=== PATIENT | female | born 1960 | race African-American/Black ===

== ENCOUNTER 2022-05-22 14:06 | Inpatient (IN) | payer MEDICAID ==
[~2022-05-22] VITALS: Ht 154.9 cm; Wt 65.8 kg
[2022-05-22] MEDS ORDERED: CALCIUM CHLORIDE 1,000 MG in DEXT 5% WATER 100 ML IV ONE (16:15)
[2022-05-22] MEDS ORDERED: INSULIN REGULAR (HUMULIN R) 300UNITS/3ML VIAL IV ONE (16:15)
[2022-05-22] MEDS ORDERED: SODIUM BICARBONATE 8.4% 1 MEQ/ML 50ML SYR IV ONE (16:15)
[2022-05-22] MEDS ORDERED: DEXTROSE 50% WATER 50ML SYRINGE IV ONE (16:15)
[2022-05-22] MEDS ORDERED: SODIUM POLYSTYRENE SULFONATE 15 G/60 ML BOT PO ONE (16:15)
[2022-05-22] MEDS ORDERED: HYDRALAZINE 20MG/ML VIAL IV ONE (16:15)
[2022-05-22] MEDS ORDERED: FUROSEMIDE 100MG/10ML VIAL IV ONE (16:15)
[2022-05-22 16:28] LABS: BASOPHILS % 0.9 % (0.0-2.0); EOSINOPHILS % 1.1 % (0.0-5.0); HEMATOCRIT. 30.2 % (36.0-48.0); HEMOGLOBIN. 9.9 g/dL (12.0-16.0); LYMPHOCYTES % 11.8 % (20.0-50.0); MEAN CORPUSCULAR HEMOGLOBIN 29.2 pg (28.0-32.0); MEAN CORPUSCULAR VOLUME 88.8 fL (81.0-99.0); NEUTROPHILS % 80.2 % (40.0-76.0); PLATELET 337 x1000/uL (130-400); RED CELL DISTRIBUTION WIDTH 16.2 % (11.6-14.6)
[2022-05-22 16:31] LABS: CHLORIDE 102 mEq/L (98-107)
[2022-05-22 16:40] LABS: D-DIMER 4.33 mg/L FEU (<0.50); INR 1.1; PROTHROMBIN TIME 11.9 sec (9.6-11.0)
[2022-05-22 16:53] LABS: ETHANOL BLOOD < 10 mg/dL
[2022-05-22] MEDS: ALBUTEROL (0.083%) 2.5MG/3ML NEB HHN SCH ×3 (16:54→18:52)
[2022-05-22 18:12] LABS: *AMPHETAMINES SCREEN URINE NEGATIVE (NEGATIVE); *BARBITURATES SCREEN URINE NEGATIVE (NEGATIVE); *BENZODIAZEPINES SCREEN URINE NEGATIVE (NEGATIVE); *COCAINE SCREEN URINE PRESUMTIVE POSITIVE (NEGATIVE); CANNABINOID URINE SCREEN NEGATIVE (NEGATIVE); METHADONE URINE SCREEN NEGATIVE (NEGATIVE); OPIATES URINE SCREEN NEGATIVE (NEGATIVE); PHENCYCLIDINE URINE SCREEN NEGATIVE (NEGATIVE)
[2022-05-22] MEDS ORDERED: CLONIDINE 0.2MG TABLET PO NR (20:45)
[2022-05-23] VITALS (10 sets, daily range): BP systolic 132–188; BP diastolic 63–101
[2022-05-23] MEDS ORDERED: HYDROCODONE/ACETAMINOPHEN 5/325MG TABLET PO PRN (00:30)
[2022-05-23] MEDS: ALBUTEROL (0.083%) 2.5MG/3ML NEB HHN PRN (05:50)
[2022-05-23] MEDS: SEVELAMER CARBONATE 800 MG TABLET PO SCH ×3 (08:15→17:26)
[2022-05-23] MEDS: ASPIRIN 81MG TABLET PO SCH (08:15)
[2022-05-23] MEDS: NIFEDIPINE XL 60MG TAB PO SCH (08:17)
[2022-05-23] MEDS ORDERED: HYDRALAZINE HCL 100MG TABLET PO NR (09:00)
[2022-05-23] MEDS ORDERED: ALBU4TAB6 MT (09:39)
[2022-05-23] MEDS ORDERED: ASPI-986 MT (09:39)
[2022-05-23] MEDS ORDERED: CLON0.5T MT (09:39)
[2022-05-23] MEDS ORDERED: LABE100T9 PO (10:58)
[2022-05-23] MEDS ORDERED: INS7030 SUBCUT (10:58)
[2022-05-23] MEDS ORDERED: QUET100T PO (10:58)
[2022-05-23 11:21] LABS: BASOPHILS % 0.9 % (0.0-2.0); EOSINOPHILS % 2.6 % (0.0-5.0); HEMATOCRIT. 26.1 % (36.0-48.0); HEMOGLOBIN. 8.9 g/dL (12.0-16.0); LYMPHOCYTES % 13.7 % (20.0-50.0); MEAN CORPUSCULAR HEMOGLOBIN 29.5 pg (28.0-32.0); MEAN CORPUSCULAR VOLUME 87.1 fL (81.0-99.0); MEAN PLATELET VOLUME 7.6 fl (7.4-10.4); MONOCYTES % 9.3 % (2.0-8.0); NEUTROPHILS % 73.5 % (40.0-76.0); PLATELET 311 x1000/uL (130-400); RED CELL DISTRIBUTION WIDTH 15.9 % (11.6-14.6)
[2022-05-23 15:34] LABS: HEPATITIS B SURFACE ANTIGEN NEGATIVE
[2022-05-23] MEDS ORDERED: HYDRALAZINE HCL 100MG TABLET PO SCH (21:00)
[2022-05-23] MEDS: HYDRALAZINE HCL 100MG TABLET PO SCH (21:16)
[2022-05-24] VITALS (7 sets, daily range): BP systolic 143–208; BP diastolic 63–105
[2022-05-24] MEDS: HYDRALAZINE HCL 100MG TABLET PO SCH ×3 (05:12→20:14)
[2022-05-24] MEDS: SEVELAMER CARBONATE 800 MG TABLET PO SCH ×3 (08:13→17:53)
[2022-05-24] MEDS: ASPIRIN 81MG TABLET PO SCH (08:14)
[2022-05-24] MEDS: NIFEDIPINE XL 60MG TAB PO SCH ×3 (08:14→20:14)
[2022-05-25] VITALS (16 sets, daily range): BP systolic 130–212; BP diastolic 75–100
[2022-05-25] MEDS: ALBUTEROL (0.083%) 2.5MG/3ML NEB HHN PRN (03:16)
[2022-05-25] MEDS: HYDRALAZINE HCL 100MG TABLET PO SCH ×3 (05:25→20:08)
[2022-05-25] MEDS: SEVELAMER CARBONATE 800 MG TABLET PO SCH ×3 (09:00→18:18)
[2022-05-25] MEDS: ASPIRIN 81MG TABLET PO SCH (09:02)
[2022-05-25] MEDS: NIFEDIPINE XL 60MG TAB PO SCH ×2 (09:02→20:08)
[2022-05-26] VITALS: BP 175/80
[2022-05-26 04:00] VITALS: BP 199/105
[2022-05-26] MEDS: HYDRALAZINE HCL 100MG TABLET PO SCH ×3 (05:29→21:37)
[2022-05-26 08:00] VITALS: BP 157/76
[2022-05-26] MEDS: ASPIRIN 81MG TABLET PO SCH (09:00)
[2022-05-26] MEDS: SEVELAMER CARBONATE 800 MG TABLET PO SCH ×3 (09:22→18:14)
[2022-05-26] MEDS: NIFEDIPINE XL 60MG TAB PO SCH ×2 (09:22→21:36)
[2022-05-26 12:00] VITALS: BP 187/97
[2022-05-26] MEDS: LOSARTAN POTASSIUM 50 MG TABLET PO SCH (13:38)
[2022-05-26] MEDS ORDERED: NALOXONE HCL 0.4MG/ML VIAL IV PRN (14:15)
[2022-05-26] MEDS: TRAMADOL 50MG TABLET PO PRN (14:15)
[2022-05-26 16:00] VITALS: BP 204/101
[2022-05-26 16:42] LABS: BASOPHILS % 1.1 % (0.0-2.0); EOSINOPHILS % 5.1 % (0.0-5.0); HEMOGLOBIN. 8.9 g/dL (12.0-16.0); MEAN CORPUSCULAR VOLUME 88.1 fL (81.0-99.0); MEAN PLATELET VOLUME 7.5 fl (7.4-10.4); MONOCYTES % 10.4 % (2.0-8.0); NEUTROPHILS % 67.4 % (40.0-76.0); PLATELET 369 x1000/uL (130-400); RED BLOOD CELL COUNT 3.07 mill/uL (4.2-5.4); RED CELL DISTRIBUTION WIDTH 15.6 % (11.6-14.6)
[2022-05-26] MEDS: CLONIDINE 0.1MG TABLET PO SCH (19:31)
[2022-05-26 20:00] VITALS: BP 162/77
[2022-05-26] MEDS: QUETIAPINE FUMARATE 50MG TABLET PO SCH (21:36)
[2022-05-26] MEDS ORDERED: CLONIDINE 0.1MG TABLET PO SCH (22:00)
[2022-05-27] VITALS: BP 149/78
[2022-05-27 04:00] VITALS: BP 170/85
[2022-05-27] MEDS: HYDRALAZINE HCL 100MG TABLET PO SCH ×3 (04:40→20:21)
[2022-05-27] MEDS: CLONIDINE 0.1MG TABLET PO SCH ×2 (05:22→15:20)
[2022-05-27 07:52] VITALS: BP 183/81
[2022-05-27 08:47] LABS: HEPATITIS B SURFACE ANTIGEN NEGATIVE
[2022-05-27] MEDS: ASPIRIN 81MG TABLET PO SCH (09:00)
[2022-05-27] MEDS: SEVELAMER CARBONATE 800 MG TABLET PO SCH ×3 (11:02→18:25)
[2022-05-27] MEDS: QUETIAPINE FUMARATE 50MG TABLET PO SCH ×2 (11:03→20:20)
[2022-05-27] MEDS: LOSARTAN POTASSIUM 50 MG TABLET PO SCH (11:04)
[2022-05-27] MEDS: NIFEDIPINE XL 60MG TAB PO SCH ×2 (11:04→20:21)
[2022-05-27 11:41] VITALS: BP 178/85
[2022-05-27 15:59] VITALS: BP 167/73
[2022-05-27 20:00] VITALS: BP 174/78
[2022-05-27] MEDS: CLONIDINE 0.2MG TABLET PO SCH (21:32)
[2022-05-27] MEDS: TRAMADOL 50MG TABLET PO PRN (21:33)
[2022-05-28] VITALS (18 sets, daily range): BP systolic 126–177; BP diastolic 51–88
[2022-05-28] MEDS: HYDRALAZINE HCL 100MG TABLET PO SCH ×3 (06:12→21:12)
[2022-05-28] MEDS: QUETIAPINE FUMARATE 50MG TABLET PO SCH ×2 (08:51→21:12)
[2022-05-28] MEDS: ASPIRIN 81MG TABLET PO SCH (08:51)
[2022-05-28] MEDS: LOSARTAN POTASSIUM 50 MG TABLET PO SCH (08:51)
[2022-05-28] MEDS: NIFEDIPINE XL 60MG TAB PO SCH ×2 (08:52→21:13)
[2022-05-28] MEDS: CLONIDINE 0.2MG TABLET PO SCH ×2 (08:52→21:13)
[2022-05-28] MEDS: SEVELAMER CARBONATE 800 MG TABLET PO SCH ×3 (08:52→17:58)
[2022-05-29] VITALS: BP 153/65
[2022-05-29 04:00] VITALS: BP 176/76
[2022-05-29] MEDS: HYDRALAZINE HCL 100MG TABLET PO SCH ×3 (05:22→21:46)
[2022-05-29] MEDS: ASPIRIN 81MG TABLET PO SCH (08:33)
[2022-05-29] MEDS: CLONIDINE 0.2MG TABLET PO SCH ×2 (08:33→21:46)
[2022-05-29] MEDS: SEVELAMER CARBONATE 800 MG TABLET PO SCH ×3 (08:33→18:33)
[2022-05-29] MEDS: TRAMADOL 50MG TABLET PO PRN (08:33)
[2022-05-29] MEDS: QUETIAPINE FUMARATE 50MG TABLET PO SCH ×2 (08:34→21:47)
[2022-05-29] MEDS: NIFEDIPINE XL 60MG TAB PO SCH ×2 (08:34→21:46)
[2022-05-29] MEDS: LOSARTAN POTASSIUM 50 MG TABLET PO SCH (08:34)
[2022-05-29 12:00] VITALS: BP 141/62
[2022-05-29 16:00] VITALS: BP 137/51
[2022-05-29 17:12] VITALS: BP 137/51
[2022-05-29 20:00] VITALS: BP 160/74
[2022-05-30] VITALS (13 sets, daily range): BP systolic 102–176; BP diastolic 70–92
[2022-05-30] MEDS: HYDRALAZINE HCL 100MG TABLET PO SCH ×4 (05:04→23:48)
[2022-05-30] MEDS: QUETIAPINE FUMARATE 50MG TABLET PO SCH ×2 (08:33→19:53)
[2022-05-30] MEDS: ASPIRIN 81MG TABLET PO SCH (08:33)
[2022-05-30] MEDS: NIFEDIPINE XL 60MG TAB PO SCH ×2 (08:34→19:53)
[2022-05-30] MEDS: LOSARTAN POTASSIUM 50 MG TABLET PO SCH (08:34)
[2022-05-30] MEDS: SEVELAMER CARBONATE 800 MG TABLET PO SCH ×3 (08:34→18:01)
[2022-05-30] MEDS: CLONIDINE 0.2MG TABLET PO SCH ×2 (08:35→19:52)
[2022-05-30] MEDS: TRAMADOL 50MG TABLET PO PRN (13:35)
[2022-05-30 16:28] LABS: EOSINOPHILS % 5.3 % (0.0-5.0); HEMATOCRIT. 23.3 % (36.0-48.0); HEMOGLOBIN. 7.7 g/dL (12.0-16.0); LYMPHOCYTES % 15.3 % (20.0-50.0); MEAN CORPUSCULAR HEMOGLOBIN 29.3 pg (28.0-32.0); MEAN CORPUSCULAR VOLUME 88.8 fL (81.0-99.0); MEAN PLATELET VOLUME 8.2 fl (7.4-10.4); MONOCYTES % 11.8 % (2.0-8.0); NEUTROPHILS % 66.6 % (40.0-76.0); PLATELET 335 x1000/uL (130-400); RED BLOOD CELL COUNT 2.62 mill/uL (4.2-5.4)
[2022-05-31] VITALS: BP 149/72
[2022-05-31 04:00] VITALS: BP 175/84
[2022-05-31 08:00] VITALS: BP 165/72
[2022-05-31] MEDS: CLONIDINE 0.2MG TABLET PO SCH (09:40)
[2022-05-31] MEDS: QUETIAPINE FUMARATE 50MG TABLET PO SCH ×2 (09:40→21:54)
[2022-05-31] MEDS: ASPIRIN 81MG TABLET PO SCH (09:40)
[2022-05-31] MEDS: SEVELAMER CARBONATE 800 MG TABLET PO SCH ×3 (09:40→17:35)
[2022-05-31] MEDS: NIFEDIPINE XL 60MG TAB PO SCH ×2 (09:41→21:57)
[2022-05-31] MEDS: LOSARTAN POTASSIUM 50 MG TABLET PO SCH (09:41)
[2022-05-31 12:00] VITALS: BP 131/60
[2022-05-31] MEDS: HYDRALAZINE HCL 100MG TABLET PO SCH ×2 (13:25→21:57)
[2022-05-31 20:00] VITALS: BP 160/72
[2022-05-31] MEDS: CLONIDINE 0.3MG TABLET PO SCH (21:00)
[2022-06-01] VITALS (10 sets, daily range): BP systolic 123–197; BP diastolic 67–97
[2022-06-01] MEDS: HYDRALAZINE HCL 100MG TABLET PO SCH ×2 (05:48→14:43)
[2022-06-01] MEDS: QUETIAPINE FUMARATE 50MG TABLET PO SCH (08:21)
[2022-06-01] MEDS: ASPIRIN 81MG TABLET PO SCH (08:21)
[2022-06-01] MEDS: CLONIDINE 0.3MG TABLET PO SCH (08:22)
[2022-06-01] MEDS: SEVELAMER CARBONATE 800 MG TABLET PO SCH ×2 (08:23→14:43)
[2022-06-01] MEDS: NIFEDIPINE XL 60MG TAB PO SCH (08:23)
[2022-06-01] MEDS: LOSARTAN POTASSIUM 50 MG TABLET PO SCH (08:23)
[2022-06-01] MEDS ORDERED: CLONIDINE 0.3MG TABLET PO SCH (14:00)
[2022-06-01] MEDS ORDERED: HYDR100T26 PO (16:54)
[2022-06-01] MEDS ORDERED: SEVE800T8 PO (16:54)
[2022-06-01] MEDS ORDERED: CLON0.3T PO (16:54)
[2022-06-01] MEDS ORDERED: LOSA50TA3 PO (16:54)
[2022-06-01] MEDS ORDERED: NIFE-32 PO (16:54)
== END 2022-06-01 16:30 | disposition home or self-care (01) | DRG 194 ==
LOC: ER 14:06 → MICUSO 17:24 → EDBEDREQ 17:26 → 8WST 05-23 04:12 → 6EST 05-25 23:08
PROVIDERS: ADMIT Internal Medicine; ATTEND Internal Medicine
PROC: 5A1D70Z Performance of Urinary Filtration, Intermittent, Less than 6 Hours Per Day (ICD-10-PCS; principal; 2022-05-23)
PROC: 5A1D70Z Performance of Urinary Filtration, Intermittent, Less than 6 Hours Per Day (ICD-10-PCS; 2022-05-25)
PROC: 5A1D70Z Performance of Urinary Filtration, Intermittent, Less than 6 Hours Per Day (ICD-10-PCS; 2022-05-28)
PROC: 5A1D70Z Performance of Urinary Filtration, Intermittent, Less than 6 Hours Per Day (ICD-10-PCS; 2022-05-30)
PROC: 5A1D70Z Performance of Urinary Filtration, Intermittent, Less than 6 Hours Per Day (ICD-10-PCS; 2022-06-01)
DX: I13.2 Hypertensive heart and chronic kidney disease with heart failure and with stage 5 chronic kidney disease, or end stage renal disease (principal); N18.6 End stage renal disease; E44.0 Moderate protein-calorie malnutrition; E11.22 Type 2 diabetes mellitus with diabetic chronic kidney disease; D63.1 Anemia in chronic kidney disease; E87.5 Hyperkalemia; I50.9 Heart failure, unspecified; F14.10 Cocaine abuse, uncomplicated; F17.210 Nicotine dependence, cigarettes, uncomplicated; Z88.8 Allergy status to other drugs, medicaments and biological substances; Z88.6 Allergy status to analgesic agent; Z68.27 Body mass index [BMI] 27.0-27.9, adult; Z91.15 Patient's noncompliance with renal dialysis; Z99.2 Dependence on renal dialysis; Z59.00 Homelessness unspecified
CPT/HCPCS: 36415; 71045; 80048; 80053; 80305; 80320; 82962; 83036; 83880; 84132; 84484; 85025; 85379; 86705; 86706; 86709; 86803; 87340; 87426; 90935; 93005; 93306; 94640; 99285; C1893; J0360; J1815; J1940; J3490; J7060; G0480